=== PATIENT | female | born 1985 | race Caucasian/White ===

== ENCOUNTER → 2016-12-05 | Outpatient (CLI) | payer OTHER ==
[2016-11-16 09:30] VITALS: BP 120/61
[~2016-12-05] MED LIST: AMOX1TAB61 PO; ERYT1OIN6 EACHEYE; GABA-585 PO; HYDR-971 PO; LEVO75TA5 PO; PROAIR RESPICL90 MCG IH; TRAM50TA PO
--- NOTE | 2016-12-05 11:40 | RAD ---
EXAM: Bilateral lower extremity venous reflux exam. HISTORY: Swelling. TECHNIQUE: Grayscale and color Doppler sonographic imaging of the lower extremity veins with spectral waveform analysis was performed. COMPARISON: None. FINDINGS: The right greater saphenous vein measures 4.7 mm at its junction and does not reflux. The left greater saphenous vein measures 5.9 mm at its junction and is no reflux. There is no evidence of venous reflux involving the lesser saphenous veins. IMPRESSION: No evidence of greater or lesser saphenous vein reflux.
== END | disposition home or self-care (01) ==
LOC: US 10:33
PROVIDERS: ATTEND Physician Assistant Medical
DX: I83.93 Asymptomatic varicose veins of bilateral lower extremities (principal); R60.9 Edema, unspecified
CPT/HCPCS: 93970

== ENCOUNTER 2016-12-12 15:26 | Emergency (ER) | payer OTHER ==
[~2016-12-12] VITALS: Ht 172.7 cm; Wt 102.5 kg
[2016-12-12 16:18] VITALS: BP 127/62
[2016-12-12] MEDS ORDERED: AZIT250T PO (16:31)
[2016-12-12] MEDS ORDERED: PROAIR RESPICL90 MCG IH (16:31)
--- NOTE | 2016-12-12 16:31 | PHYS DOC ---
Past Medical History Past Medical History: Anxiety, Asthma, Hypothyroid Past Surgical History: , Other Additional Past Surgical Histo: LEFT ANKLE, right hand surgery Alcohol Use: None Drug Use: None Adult General Chief Complaint Chief Complaint: COUGH HPI HPI Patient is a 31 year old female with history of anxiety and asthma and hypothyroidism currently 13 weeks who presents today with a productive cough, nasal congestion, and shortness of breath for one week. Patient denies any fever. She states she was seen in the ED on October 2016 with same complaints and was given antibiotics which cleared her symptoms then symptoms re - started again a week ago. She states she had an appointment with her SYNOPTIC METEOROLOGIST today at 4 PM but missed the appointment to come to the ED. Patient is very concerned she could've walking pneumonia she even presented with a sputum in a zip lock bag that she would like us to test. Informed her we do not need the sputum today. we can treat her. Review of Systems Review of Systems Constitutional: see HPI Eyes: Denies change in visual acuity, redness, or eye pain [] HENT: nasal congestion Respiratory: cough and shortness of breath [] Cardiovascular: No additional information not addressed in HPI [] GI: Denies abdominal pain, nausea, vomiting, bloody stools or diarrhea [] : Denies dysuria or hematuria [] Musculoskeletal: Denies back pain or joint pain [] Integument: Denies rash or skin lesions [] Neurologic: Denies headache, focal weakness or sensory changes [] Endocrine: Denies polyuria or polydipsia [] Allergies Allergies Allergies Coded Allergies Type Severity Reaction Last Updated Verified Latex, Natural Rubber Allergy Intermediate Hives 12/20/15 Yes I S O L A T I O N *CONTACT* Allergy Unknown 12/20/15 Yes Physical Exam Physical Exam Constitutional: Well developed, well nourished, no acute distress, non-toxic appearance. [] HENT: Normocephalic, atraumatic, bilateral external ears normal, oropharynx moist, no oral exudates, nose normal. [] Eyes: PERRLA, EOMI, conjunctiva normal, no discharge. [] Neck: Normal range of motion, no tenderness, supple, no stridor. [] Cardiovascular:Heart rate regular rhythm, no murmur [] Lungs & Thorax: Bilateral breath sounds clear to auscultation, Abdomen: Bowel sounds normal, soft, no tenderness, no masses, no pulsatile masses. [] Skin: Warm, dry, no erythema, no rash. [] Back: No tenderness, no CVA tenderness. [] Extremities: No tenderness, no cyanosis, no clubbing, ROM intact, no edema. [] Neurologic: Alert and oriented X 3, normal motor function, normal sensory function, no focal deficits noted. [] Psychologic: Affect normal, judgement normal, mood normal. [] EKG EKG [] Radiology/Procedures Radiology/Procedures [] Course & Med Decision Making Course & Med Decision Making Pertinent Labs and Imaging studies reviewed. (See chart for details) This is a 13 week woman who presents today with a productive cough with nasal congestion for week. Discharge her with azithromycin. Discharged with albuterol inhaler. Instructed to contact her OB and follow-up as soon as possible. Humidifier also recommended for the room as well as rubbing Vicks to her chest and nose. Reminded patient some of the symptoms could be related especially nasal congestion. Recommended hot tea with amilcar as well. Provided return precautions and discharged in stable condition. Dragon Disclaimer Dragon Disclaimer This electronic medical record was generated, in whole or in part, using a voice recognition dictation system. Departure Departure Impression: Primary Impression: Bronchitis, acute Additional Impression: Upper respiratory infection Disposition: 01 HOME, SELF-CARE Condition: STABLE Referrals: JONNY LEVI MD (PCP) follow up with your own OBGYN and PCP in the next seven days. Patient Instructions: Acute Bronchitis, Upper Respiratory Infection, Adult, [id number] Additional Instructions: You are and were seen for bronchitis. Please complete your antibiotics. This is a five day treatment. You can get a humidifier and place in your room or house. Drink warm tea with amilcar it helps with colds. Follow up with your doctor in the next 7 days. some of the symptoms could be related especially the nasal congestion. Scripts Albuterol Sulfate (Proair Respiclick)90 Mcg Aer.pow.ba1 Puff IH PRN Q6HRS PRN SHORTNESS OF BREATH #1 INHALER Prov:MUTUNGA,MARI WEB ANALYST 12/12/16 Azithromycin (Zithromax)250 Mg Tablet1 Pkg PO UD #1 PKG Prov:MUTUNGA,MARI WEB ANALYST 12/12/16 Problem Qualifiers Primary Impression: Bronchitis, acute Bronchitis organism: unspecified organism Qualified Code: J20.9 - Acute bronchitis, unspecified Additional Impression: Upper respiratory infection URI type: unspecified URI Qualified Code: J06.9 - Acute upper respiratory infection, unspecified MARI EDUARDO WEB ANALYST Dec 12, 2016 16:31
== END 2016-12-12 16:40 | disposition home or self-care (01) ==
LOC: ER 15:26
DX: O99.511 Diseases of the respiratory system complicating pregnancy, first trimester (principal); J20.9 Acute bronchitis, unspecified; J06.9 Acute upper respiratory infection, unspecified; J45.909 Unspecified asthma, uncomplicated; E03.9 Hypothyroidism, unspecified; F41.9 Anxiety disorder, unspecified; Z3A.13 13 weeks gestation of pregnancy; Z91.041 Radiographic dye allergy status; Z91.040 Latex allergy status
CPT/HCPCS: 99283

== ENCOUNTER 2017-01-15 16:24 | Emergency (ER) | payer OTHER ==
[~2017-01-15] VITALS: Ht 172.7 cm; Wt 102.5 kg
[~2017-01-15 16:24] MED LIST changes: +AZIT250T PO
[2017-01-15 16:35] VITALS: BP 120/57
--- NOTE | 2017-01-15 17:12 | PHYS DOC ---
Past Medical History Past Medical History: Anxiety, Asthma, Hypothyroid Past Surgical History: , Other Additional Past Surgical Histo: LEFT ANKLE, right hand surgery Smoking: Less than 1pk/day Alcohol Use: None Drug Use: None Adult General Chief Complaint Chief Complaint: COUGH [facility] HPI Patient is a 31 year old female who presents with productive cough and shortness of breath starting yesterday. She also has nasal congestion and right ear pain. She denies fever or sore throat. Patient states that she has essentially been sick for the past 2-3 months. She's been seen here multiple times for her cough. She reports interval improvement after medication each time. She has a history of asthma and has been using her albuterol inhaler and nebulizer as well as her Advair Diskus. She is currently approximately 18 weeks . She has not been treated with steroids up to this point due to her . She did receive a flu shot this season. Her OB is Dr. Lama. Her PCP is Dr. Panfilo Valladares. Review of Systems Review of Systems Constitutional: Denies fever or chills. [] Eyes: Denies change in visual acuity, redness, or eye pain. [] HENT: Denies sore throat. Reports nasal congestion and right ear pain. Respiratory: Reports productive cough and shortness of breath. Cardiovascular: Denies chest pain, palpitations or edema. [] GI: Denies abdominal pain, nausea, vomiting, bloody stools or diarrhea. [] : Denies dysuria, hematuria or urinary frequency. [] Musculoskeletal: Denies back pain or joint pain. [] Integument: Denies rash or skin lesions. [] Neurologic: Denies headache, focal weakness or sensory changes. [] Endocrine: Denies polyuria or polydipsia. [] Psych: Denies anxiety or depression. [] All systems reviewed and negative unless otherwise stated in the HPI. Allergies Allergies Allergies Coded Allergies Type Severity Reaction Last Updated Verified Latex, Natural Rubber Allergy Intermediate Hives 12/20/15 Yes I S O L A T I O N *CONTACT* Allergy Unknown 12/20/15 Yes Physical Exam Physical Exam Constitutional: Well developed, well nourished, no acute distress, non-toxic appearance. [] HENT: Normocephalic, atraumatic, bilateral external ears normal, oropharynx moist, no oral exudates, nose normal. Bilateral TMs without erythema or bulging. There is no posterior pharyngeal erythema or tonsillar edema. Bilateral nasal turbinates are significantly swollen and erythematous with purulent drainage. Eyes: PERRLA, EOMI, conjunctiva normal, no discharge. [] Neck: Normal range of motion, no tenderness, supple, no stridor. [] Cardiovascular: Heart rate regular rhythm, no murmur [] Lungs & Thorax: Bilateral breath sounds clear to auscultation without wheezes, rales, or rhonchi. No respiratory distress. Skin: Warm, dry, no erythema, no rash. [] Neurologic: Alert and oriented X 3, normal motor function, normal sensory function, no focal deficits noted. [] Psychologic: Affect normal, judgement normal, mood normal. [] Current Patient Data Vital Signs Vital Signs Date Time Temp Pulse Resp B/P Pulse Ox O2 Delivery O2 Flow Rate FiO2 01/15/17 16:35 98.5 113 16 98 Room Air 98.5 Lab Values Laboratory Tests Test 01/15/17 16:50 Influenza Type A Antigen Positive (NEGATIVE) Influenza Type B Antigen Negative (NEGATIVE) EKG EKG [] Radiology/Procedures Radiology/Procedures [] Course & Med Decision Making Course & Med Decision Making Pertinent Labs and Imaging studies reviewed. (See chart for details) [] Dragon Disclaimer Dragon Disclaimer This electronic medical record was generated, in whole or in part, using a voice recognition dictation system. Departure Departure Impression: Primary Impression: Influenza A Disposition: HOME, SELF-CARE Condition: STABLE Referrals: PANFILO VALLADARES MD (PCP) Patient Instructions: Influenza, Adult, [id number] Additional Instructions: You tested positive for influenza A. Please complete the prescribed Tamiflu and steroids. Please take Tylenol for fever or body aches. Use according to package instructions. Please be sure you're drinking lots of water getting plenty of rest. Please stay home from work through Sunday. Please follow-up with your OB doctor within the next week. Return to the emergency department if you have any new or concerning symptoms. Scripts Oseltamivir Phosphate (Tamiflu)75 Mg Capsule1 Cap PO BID #10 CAP Prov:URI SHAFFER 01/15/17 Prednisone 20 Mg [id number] Mg PO DAILY 5 Days Prov:URI SHAFFER 01/15/17 URI SHAFFERb 20, 2017 17:12
[2017-01-15 17:36] LABS: OBC FLU VALID
[2017-01-15] MEDS ORDERED: OSEL75CA PO (17:49)
[2017-01-15] MEDS ORDERED: PRED20TA PO (17:49)
== END 2017-01-15 17:57 | disposition home or self-care (01) ==
LOC: ER 16:24
DX: O99.512 Diseases of the respiratory system complicating pregnancy, second trimester (principal); J09.X2 Influenza due to identified novel influenza A virus with other respiratory manifestations; H92.01 Otalgia, right ear; J45.909 Unspecified asthma, uncomplicated; O99.342 Other mental disorders complicating pregnancy, second trimester; F41.9 Anxiety disorder, unspecified; O99.282 Endocrine, nutritional and metabolic diseases complicating pregnancy, second trimester; E03.9 Hypothyroidism, unspecified; O99.332 Smoking (tobacco) complicating pregnancy, second trimester; Z91.041 Radiographic dye allergy status; Z91.040 Latex allergy status; Z3A.18 18 weeks gestation of pregnancy; Z79.899 Other long term (current) drug therapy
CPT/HCPCS: 87804; 99284

== ENCOUNTER 2017-01-28 21:43 | Emergency (ER) | payer OTHER ==
[~2017-01-28] VITALS: Ht 165.1 cm; Wt 102.5 kg
[~2017-01-28 21:43] MED LIST changes: +OSEL75CA PO; +PRED20TA PO
[2017-01-28 21:55] VITALS: BP 127/60
--- NOTE | 2017-01-28 22:04 | PHYS DOC ---
Past Medical History Past Medical History: Anxiety, Asthma, Hypothyroid Past Surgical History: , Other Additional Past Surgical Histo: LEFT ANKLE, right hand surgery Alcohol Use: None Drug Use: None Adult General Chief Complaint Chief Complaint: LACERATION/AVULSION [facility] HPI Patient is a 31 year old female presents emergency room with complaint of a laceration to the bottom of her right foot that occurred within the past 30 minutes prior to arrival. Patient states there was a broken light bulb on the floor in which she stepped on. She denies any additional injuries or concerns. Patient reports that she has had a tetanus shot within the past 2 years. Review of Systems Review of Systems Constitutional: Denies fever or chills [] Eyes: Denies change in visual acuity, redness, or eye pain [] HENT: Denies nasal congestion or sore throat [] Respiratory: Denies cough or shortness of breath [] Cardiovascular: No additional information not addressed in HPI [] GI: Denies abdominal pain, nausea, vomiting, bloody stools or diarrhea [] : Denies dysuria or hematuria [] Musculoskeletal: Denies back pain or joint pain [] Integument: Denies rash or skin lesions [] Neurologic: Denies headache, focal weakness or sensory changes [] Endocrine: Denies polyuria or polydipsia [] Allergies Allergies Allergies Coded Allergies Type Severity Reaction Last Updated Verified Latex, Natural Rubber Allergy Intermediate Hives 12/20/15 Yes I S O L A T I O N *CONTACT* Allergy Unknown 12/20/15 Yes Physical Exam Physical Exam Constitutional: Well developed, well nourished, no acute distress, non-toxic appearance. [] HENT: Normocephalic, atraumatic, bilateral external ears normal, oropharynx moist, no oral exudates, nose normal. [] Eyes: PERRLA, EOMI, conjunctiva normal, no discharge. [] Neck: Normal range of motion, no tenderness, supple, no stridor. [] Cardiovascular:Heart rate regular rhythm, no murmur [] Lungs & Thorax: Bilateral breath sounds clear to auscultation [] Abdomen: Bowel sounds normal, soft, no tenderness, no masses, no pulsatile masses. [] Skin: Warm, dry, no erythema, no rash. [] Back: No tenderness, no CVA tenderness. [] Extremities: Right foot with a 1 cm laceration/puncture to the plantar surface at the level of the third MTPJ. There is no active bleeding. There is no palpable foreign body retained. There is no bony tenderness. Neurologic: Alert and oriented X 3, normal motor function, normal sensory function, no focal deficits noted. [] Psychologic: Affect normal, judgement normal, mood normal. [] Current Patient Data Vital Signs Vital Signs Date Time Temp Pulse Resp B/P Pulse Ox O2 Delivery O2 Flow Rate FiO2 01/28/17 21:55 97.8 66 18 98 Room Air 97.8 EKG EKG [] Radiology/Procedures Radiology/Procedures 2 views of patient's right foot was performed with adequate technique. There is evidence of a small retained foreign body in the subcutaneous tissue consistent with exam. Course & Med Decision Making Course & Med Decision Making Discussed with patient the retained foreign body. She verbalizes understanding that this. At this time, we have elected to leave the foreign body along and wanted to clear itself if it is going to cause any problems. Dragon Disclaimer Dragon Disclaimer This electronic medical record was generated, in whole or in part, using a voice recognition dictation system. Departure Departure Impression: Primary Impression: Retained foreign body Disposition: HOME, SELF-CARE Condition: GOOD Referrals: JONNY LEVI MD (PCP) Patient Instructions: Foreign Body-Brief Additional Instructions: 1. As discussed, the x-rays that show a small retained foreign body in the area of the cut. At this time, it is believed that we may cause more soft tissue damage in attempting to remove the foreign body. 2. Take the medication as prescribed. 3. You can call the wound care clinic to schedule follow-up appointment for wound evaluation. Please call [phone] to schedule an appointment. Scripts Hydrocodone/Apap 5-325 ([place] 5-325 Tablet)1 Each Tablet1 Tab PO PRN Q6HRS PRN PAIN #10 TAB Ref 0 Prov:STEPHANIE MEEKS 01/28/17 Cephalexin 500 Mg Capsule1 Cap PO TID #30 CAP Prov:STEPHANIE MEEKS 01/28/17 STEPHANIE MEEKS Jan 28, 2017 22:04
[2017-01-28] MEDS ORDERED: CEPH500C PO (22:29)
[2017-01-28] MEDS ORDERED: HYDR-971 PO (22:29)
--- NOTE | 2017-01-29 07:35 | RAD ---
EXAM: Right foot 2 views. HISTORY: Stepped on glass, laceration, foreign body. COMPARISON: None. FINDINGS: A splinterlike radiopaque foreign body projects between the second and third metatarsal diaphyses, likely within the immediately subcutaneous tissues of the plantar aspect of the foot. Correlate for this is the site of penetrating injury. It measures 3 x 1 mm. No fractures are identified. Joint spaces and alignment are maintained. IMPRESSION: 1. 3 x 1 mm radiopaque foreign body along the plantar aspect of the forefoot.
== END 2017-01-28 22:34 | disposition home or self-care (01) ==
LOC: ER 21:43
DX: S91.321A Laceration with foreign body, right foot, initial encounter (principal); F41.9 Anxiety disorder, unspecified; E03.9 Hypothyroidism, unspecified; J45.909 Unspecified asthma, uncomplicated; Z91.041 Radiographic dye allergy status; Z91.040 Latex allergy status; W22.8XXA Striking against or struck by other objects, initial encounter; Y93.89 Activity, other specified; Y92.89 Other specified places as the place of occurrence of the external cause; Y99.8 Other external cause status
CPT/HCPCS: 73620; 99283; 99284

== ENCOUNTER → 2017-03-30 | Outpatient (CLI) | payer OTHER ==
[2017-02-02 09:04] VITALS: BP 115/72
[~2017-03-30] MED LIST changes: +CEPH500C PO
--- NOTE | 2017-03-30 09:14 | KCIC ---
PROCEDURE Left breast sonogram. HISTORY 32-year-old female presents with a left breast lump. TECHNIQUE Sonographic imaging of the left breast targeted to the site of palpable concern and the axilla was performed. COMPARISON None. FINDINGS There is no suspicious finding within the left breast at the site of palpable concern at the 11 o'clock position 12 cm from the nipple. There are normal appearing axillary lymph nodes. IMPRESSION 1. No suspicious sonographic finding within the site of palpable concern within the 11 o'clock position of the left breast. A negative imaging report should not preclude the decision to biopsy a palpable abnormality if there is clinical concern. 2. The patient is 36 weeks . Diagnostic mammography can be considered following delivery and several months following cessation of if there is continuing clinical concern. 3. BI-RADS Category 2: Benign findings. Electronically signed by: Shelley Ross (March 30, 2017 09:12:53)
== END | disposition home or self-care (01) ==
LOC: KCIC US 08:45
PROVIDERS: ATTEND Obstetrics & Gynecology
DX: O92.29 Other disorders of breast associated with pregnancy and the puerperium (principal); Z3A.36 36 weeks gestation of pregnancy
CPT/HCPCS: 76641

== ENCOUNTER 2017-04-25 19:25 | Inpatient (IN) | payer OTHER ==
[~2017-04-25] VITALS: Ht 167.6 cm; Wt 99.8 kg
[2017-04-25] MEDS ORDERED: IV RINGERS,LACTATED 1000ML 1,000 ML IV SCH (19:55)
[2017-04-25] MEDS ORDERED: LIDOCAINE 1% PF 30 ML VIAL. INJ PRN (20:00)
[2017-04-25] MEDS ORDERED: ACETAMINOPHEN 325 MG TABLET. PO PRN ×2 (20:00→21:00)
[2017-04-25] MEDS ORDERED: 0.9 % SODIUM CHLORIDE 10 ML DISP.SYRIN. IV PRN ×2 (20:00→21:00)
[2017-04-25] MEDS ORDERED: fentaNYL PF VIAL 100 MCG/2 ML VIAL IV PRN (20:00)
[2017-04-25] MEDS ORDERED: ONDANSETRON PF 4 MG/2 ML VIAL. IV PRN (20:00)
[2017-04-25] MEDS ORDERED: MAG HYDROX/ALUMINUM HYD/SIMETH 30 ML ORAL.SUSP PO PRN ×2 (20:00→21:00)
[2017-04-25] MEDS ORDERED: CITRIC ACID/SODIUM CITRATE 30 ML SOLUTION. PO PRN (20:00)
[2017-04-25] MEDS ORDERED: BUTORPHANOL 2 MG/ML VIAL. IV PRN (20:00)
[2017-04-25] MEDS ORDERED: OXYTOCIN 30 UNIT/500 ML PREMIX 500 ML IV PRN ×2 (20:00→21:00)
[2017-04-25] MEDS ORDERED: TERBUTALINE 1 MG/ML VIAL. SQ PRN (20:00)
[2017-04-25 20:05] LABS: HEMATOCRIT 31.5 % (36.0-47.0); RED BLOOD COUNT 3.8 x10^6/uL (3.50-5.40); WHITE BLOOD COUNT 14.4 x10^3/uL (4.0-11.0)
[2017-04-25 20:23] LABS: BILIRUBIN,URINE NEGATIVE (NEG); GLUCOSE,URINE NEGATIVE (NEG); NITRITE,URINE NEGATIVE (NEG); PROTEIN,URINE NEGATIVE (NEG-TRACE); UROBILINOGEN,URINE 0.2 mg/dL (0.2 mg/dL)
[2017-04-25 20:28] LABS: BACTERIA,URINE FEW /HPF (0-FEW); RBC,URINE 20-40 /HPF (0-2); SQUAMOUS EPITHELIAL CELL,UR MANY /LPF; WBC,URINE 20-40 /HPF (0-4)
[2017-04-25 20:30] LABS: BARBITURATES NEG (NEG); BENZODIAZEPINES NEG (NEG); CANNABINOIDS NEG (NEG); COCAINE NEG (NEG); METHADONE NEG (NEG); OPIATES NEG (NEG); PHENCYCLIDINE NEG (NEG)
[2017-04-25] MEDS ORDERED: PHENYLEPH/MINERAL OIL/PETROLAT RECTAL OINTMENT 28GM TUBE. RC PRN (21:00)
[2017-04-25] MEDS ORDERED: HYDROCORTISONE 1% TOPICAL OINTMENT 30GM TUBE. TP PRN (21:00)
[2017-04-25] MEDS ORDERED: BENZOCAINE 20% TOPICAL AEROSOL SPRAY 57GM CAN. TP PRN (21:00)
[2017-04-25] MEDS ORDERED: SIMETHICONE 80 MG TAB.CHEW PO PRN (21:00)
[2017-04-25] MEDS ORDERED: MMR per PROTOCOL. MC PRN (21:00)
[2017-04-25] MEDS ORDERED: MAGNESIUM HYDROXIDE 2,400 MG/30 ML ORAL.SUSP. PO PRN (21:00)
[2017-04-25] MEDS ORDERED: diphenhydrAMINE HCL 25 MG CAPSULE PO PRN (21:00)
[2017-04-25] MEDS ORDERED: ZOLPIDEM 5 MG TABLET. PO PRN (21:00)
[2017-04-25] MEDS ORDERED: OXYTOCIN 10 UNIT/ML VIAL. ONE (21:16)
[2017-04-25] MEDS ORDERED: ePHEDrine PF IN SALINE 50 MG/5 ML DISP.SYRIN IV ONE (21:16)
[2017-04-25] MEDS ORDERED: MORPHINE PF 5 MG/10 ML VIAL. ONE (21:16)
[2017-04-25] MEDS ORDERED: METOCLOPRAMIDE HCL 10 MG/2 ML VIAL. ONE (22:23)
--- NOTE | 2017-04-25 22:44 | PDOC ---
SUBJECTIVE Subjective 32 yrs old female Previous C section admitted in active Labor OBJECTIVE Objective Vital signs stable Hb 10 Vital Signs Vital Signs Date Time Temp Pulse Resp B/P (MAP) Pulse Ox O2 Delivery O2 Flow Rate FiO2 04/25/17 20:17 20 Room Air PHYSICAL EXAM Physical Exam Cervix dilated to 4cm Has contractions She is 42 weeks oedema feet Drug abuse ASSESSMENT/PLAN Assessment/Plan Repeat done Alive Male baby 7lbs 9 oz dlivered with apgars 7and 9 EBL 300 cc Problems: COMMENT Lab Laboratory Tests Test 04/25/17 19:45 04/25/17 20:15 White Blood Count 14.4 x10^3/uL (4.0-11.0) Red Blood Count 3.80 x10^6/uL (3.50-5.40) Hemoglobin 10.0 g/dL (12.0-15.5) Hematocrit 31.5 % (36.0-47.0) Mean Corpuscular Volume 83 fL (79-100) Mean Corpuscular Hemoglobin 26 pg (25-35) Mean Corpuscular Hemoglobin Concent 32 g/dL (31-37) Red Cell Distribution Width 15.0 % (11.5-14.5) Platelet Count 261 x10^3/uL (140-400) Urine Collection Type Unknown Urine Color Yellow Urine Clarity Cloudy Urine pH 6.0 Urine Specific [place] 1.025 Urine Protein Negative mg/dL (NEG-TRACE) Urine Glucose (UA) Negative mg/dL (NEG) Urine Ketones (Stick) Negative mg/dL (NEG) Urine Blood Large (NEG) Urine Nitrite Negative (NEG) Urine Bilirubin Negative (NEG) Urine Urobilinogen Dipstick 0.2 mg/dL (0.2 mg/dL) Urine Leukocyte Esterase Large (NEG) Urine RBC 20-40 /HPF (0-2) Urine WBC 20-40 /HPF (0-4) Urine Squamous Epithelial Cells Many /LPF Urine Amorphous Sediment Present /HPF Urine Bacteria Few /HPF (0-FEW) Urine Mucus Mod /LPF Urine Opiates Screen Neg (NEG) Urine Methadone Screen Neg (NEG) Urine Barbiturates Neg (NEG) Urine Phencyclidine Screen Neg (NEG) Urine Amphetamine/Methamphetamine Pos (NEG) Urine Benzodiazepines Screen Neg (NEG) Urine Cocaine Screen Neg (NEG) Urine Cannabinoids Screen Neg (NEG) Urine Ethyl Alcohol Neg (NEG) SATHYANARAYANA,SARASWATHI MD April 25, 2017 22:44
--- NOTE | 2017-04-25 22:50 | HP ---
ADMIT DATE: 04/25/2017 HISTORY OF PRESENT ILLNESS: This patient is a 32-year-old white female who is a 6, para 5, EDC 04/23/2017 has had a care was seen by Dr. Florence in the clinic and patient comes into the hospital at this time with a history of having contractions and she does give a history of previous and be back delivery, but she has gained about 20 pounds with this and patient in active labor, hence admitted to the hospital. PHYSICAL EXAMINATION: VITAL SIGNS: Being stable. HEAD, EYES, NOSE, THROAT: Exam within normal limits. LUNGS: Clear. CARDIOVASCULAR: Heart sounds regular sinus rhythm. ABDOMEN: Term size uterus. heart tones are 140 per minute and vertex presenting. PELVIC: Shows cervix about 4 cm dilated, membranes intact. The patient in labor. EXTREMITIES: Edema of feet noted. ALLERGIES: SHE IS ALLERGIC TO LATEX. IMPRESSION: 6, post-term . The patient in active labor, previous section. PLAN: Repeat . RICH MOORE MD DR: MARELY/jaylan JOB#: [id number] / [id number]
[2017-04-26] VITALS (8 sets, daily range): BP systolic 92–104; BP diastolic 40–62
[2017-04-26] MEDS ORDERED: IBUPROFEN 600 MG TABLET. PO SCH
--- NOTE | 2017-04-26 00:04 | OP ---
DATE OF SURGERY: PREOPERATIVE DIAGNOSES: 6, para 5, previous section; the patient in active labor. POSTOPERATIVE DIAGNOSES: 6, para 5, previous section; the patient in active labor with pelvic adhesions. OPERATION PERFORMED: Repeat with lysis of adhesions. PROCEDURE: The patient was taken to the operating room. Under a spinal block, the patient was placed in the dorsal supine position. Rich catheter was introduced in the bladder for continuous bladder drainage. The lower abdomen was prepped and draped in the usual manner. A Pfannenstiel incision was made over the area of the previous scar and the abdomen was opened in layers and the bladder flap peritoneum was dissected. Bladder was pushed way down the lower segment of the uterus. Incision was made on the uterus and the incision was extended on either side using index fingers. Clear amniotic fluid was seen. A live male weighing 7 pounds 9 ounces, delivered with the scores of 7 and 9. Cord was clamped and cut. The placenta was removed and sent for pathological examination. The uterus was sutured in two layers using #1 chromic catgut sutures without any problem and reperitonealization was done with continuous 0 chromic catgut sutures. She did receive Pitocin after delivery of the placenta. All the blood clots in the pelvic cavity were removed. Uterus placed in position in the pelvic cavity and the abdomen closed in layers using continuous 0 chromic catgut sutures for the peritoneum, the muscle, and the fascia. Then, 3-0 plain continuous sutures applied for subcutaneous tissue, 3-0 Vicryl subcutaneous sutures were placed, and a pressure dressing was given. The patient was sent to the recovery room in good condition. No complications encountered at time of the delivery. Estimated blood loss was about 300 mL. Baby is referred to scuba instructor for further care and treatment. Mother tolerated the delivery well. No complications at this time. RICH MOORE MD DR: MARELY/jaylan JOB#: [id number] / [id number]
[2017-04-26] MEDS ORDERED: FERROUS SULFATE 325 MG TABLET. PO SCH (08:00)
[2017-04-26] MEDS: DOCUSATE SODIUM 100 MG CAPSULE. PO PRN ×2 (10:30→22:15)
[2017-04-26] MEDS: IBUPROFEN 800 MG TABLET. PO PRN ×2 (10:30→22:15)
[2017-04-26] MEDS: oxyCODONE/APAP 5/325 1 TAB TABLET PO PRN ×2 (12:33→22:15)
--- NOTE | 2017-04-26 14:18 | PDOC ---
SUBJECTIVE Subjective Patient doing fine No complaints OBJECTIVE Objective Vital signs stable Vital Signs Vital Signs Date Time Temp Pulse Resp B/P (MAP) Pulse Ox O2 Delivery O2 Flow Rate FiO2 04/26/17 11:30 99.0 105 16 101/48 (65) 95 Room Air 99.0 04/26/17 06:47 99.3 117 18 92/49 (63) 94 Room Air 99.3 04/26/17 03:30 99.7 113 18 96/40 (58) 95 Room Air 99.7 04/26/17 02:40 99.6 109 18 102/56 (71) 97 Room Air 99.6 04/26/17 02:15 99.4 110 18 100/62 (75) 97 Room Air 99.4 04/26/17 01:40 99.2 110 18 104/60 (75) 97 Room Air 99.2 04/25/17 20:17 20 Room Air I & O Intake and Output 04/26/17 07:00 Intake Total 480 ml Output Total 1300 ml Balance -820 ml Intake Oral 480 ml Output Urine Total 1300 ml PHYSICAL EXAM Physical Exam No fever Abdomen soft Incision healing well ASSESSMENT/PLAN Assessment/Plan Post op day one Lochia normal No heavy bleeding Baby doing ok Problems: COMMENT Lab Laboratory Tests Test 04/25/17 19:45 04/25/17 20:15 04/26/17 03:37 White Blood Count 14.4 x10^3/uL (4.0-11.0) Red Blood Count 3.80 x10^6/uL (3.50-5.40) Hemoglobin 10.0 g/dL (12.0-15.5) Hematocrit 31.5 % (36.0-47.0) 30.1 % (36.0-47.0) Mean Corpuscular Volume 83 fL (79-100) Mean Corpuscular Hemoglobin 26 pg (25-35) Mean Corpuscular Hemoglobin Concent 32 g/dL (31-37) Red Cell Distribution Width 15.0 % (11.5-14.5) Platelet Count 261 x10^3/uL (140-400) Urine Collection Type Unknown Urine Color Yellow Urine Clarity Cloudy Urine pH 6.0 Urine Specific [place] 1.025 Urine Protein Negative mg/dL (NEG-TRACE) Urine Glucose (UA) Negative mg/dL (NEG) Urine Ketones (Stick) Negative mg/dL (NEG) Urine Blood Large (NEG) Urine Nitrite Negative (NEG) Urine Bilirubin Negative (NEG) Urine Urobilinogen Dipstick 0.2 mg/dL (0.2 mg/dL) Urine Leukocyte Esterase Large (NEG) Urine RBC 20-40 /HPF (0-2) Urine WBC 20-40 /HPF (0-4) Urine Squamous Epithelial Cells Many /LPF Urine Amorphous Sediment Present /HPF Urine Bacteria Few /HPF (0-FEW) Urine Mucus Mod /LPF Urine Opiates Screen Neg (NEG) Urine Methadone Screen Neg (NEG) Urine Barbiturates Neg (NEG) Urine Phencyclidine Screen Neg (NEG) Urine Amphetamine/Methamphetamine Pos (NEG) Urine Benzodiazepines Screen Neg (NEG) Urine Cocaine Screen Neg (NEG) Urine Cannabinoids Screen Neg (NEG) Urine Ethyl Alcohol Neg (NEG) RICH MOORE MD Apr 26, 2017 14:18
--- NOTE | 2017-04-27 08:57 | PDOC ---
SUBJECTIVE Subjective Patient Having Breakfast No Complaints Wants to go home tomorrow OBJECTIVE Objective No fever No problems Vital Signs Vital Signs Date Time Temp Pulse Resp B/P (MAP) Pulse Ox O2 Delivery O2 Flow Rate FiO2 04/26/17 23:47 18 04/26/17 23:15 18 Room Air 04/26/17 22:15 97.9 90 18 100/62 (75) 97 Room Air 97.9 04/26/17 22:15 18 Room Air 04/26/17 15:20 97.8 88 18 93/54 (67) 98 Room Air 97.8 04/26/17 11:30 99.0 105 16 101/48 (65) 95 Room Air 99.0 I & O Intake and Output 04/27/17 07:00 Intake Total 500 ml Output Total 900 ml Balance -400 ml Intake Oral 500 ml Output Urine Total 900 ml PHYSICAL EXAM Physical Exam Abdomen sft Incision healing well ASSESSMENT/PLAN Assessment/Plan Plan dismissal tomorrow AM Problems: RICH MOORE MD Apr 27, 2017 08:57
[2017-04-27 09:31] VITALS: BP 133/65
[2017-04-27] MEDS: DOCUSATE SODIUM 100 MG CAPSULE. PO PRN (10:01)
[2017-04-27] MEDS: oxyCODONE/APAP 5/325 1 TAB TABLET PO PRN ×3 (10:01→18:34)
[2017-04-27] MEDS: IBUPROFEN 800 MG TABLET. PO PRN ×2 (10:01→18:33)
[2017-04-27 10:24] LABS: RPR REFLEX Non Reactive (Non Reactive)
[2017-04-27] MEDS ORDERED: ceFAZolin 2GM PREMIX 2 GM/50 ML BAG IV ONE (12:00)
[2017-04-27 13:31] VITALS: BP 104/64
--- NOTE | 2017-04-30 13:43 | PATHOLOGY ---
PATHOLOGY REPORT * * * * * * * * FINAL DIAGNOSIS: 693 gram full term placenta with attached membranes and umbilical cord: - Acute chorioamnionitis. - Acute funisitis. - Acute vasculitis of chorionic plate. - Short umbilical cord (32 cm) with marginal insertion. (JPM:; d/t: 04/30/17) REPORT ELECTRONICALLY SIGNED BY: Cristhian Garner M.D. DATE/TIME: 04/30/2017 13:42 * * * * * * * * GROSS PATHOLOGY: The specimen is received in formalin labeled "Bhavanaplacelata" is a 17.2 x 15.8 x 3.3 cm garcia placenta with a 32 cm long umbilical cord. The 3 vessel umbilical cord inserts paracentrally with 3 twists per 5-6 cm. The membranes are bluish sahni with marginal insertion. The point of rupture is unable to be determined. The surface is intact. The maternal surface is also intact. After removal of the membranes and umbilical cord, the placenta weighs 693 g. Sectioning reveals a red beefy unremarkable cut surface. Section code: A1-membranes and umbilical cord, [id number] section adjacent to umbilical cord insertion site, A3 through [id number] sales representative trainee sections of placenta full-thickness. (AKA; 04/27/2017) INITIAL CPT CODE(S): A; 43885 Professional services performed [place] [facility] [place] [address] Technical services performed by [facility] at [address] [place] [address] [address] [address]. SPECIMEN(S) RECEIVED: A.Placenta CLINICAL HISTORY: IUP, EDC 04/23/17, repeat , , 7lb 5oz male @ 2201 on 04/25/17, apgars 7-9, ? unknown care, + for meth PATIENT: ADRIANNA BURR /AGE: 4 1985 (Age: 32) PATIENT #: [id number] ALT CASE #: SPECIMEN COLLECTION DATE: 04/25/2017 SPECIMEN RECEIVED DATE: 04/26/2017 [facility] - [address] [place] [address] - PHONE: [phone] * * * END OF REPORT * * *
== END 2017-04-27 18:40 | disposition home or self-care (01) | DRG 766 ==
LOC: 3 SO LND 19:25 → OBSVTOIN 19:25 → 3 SO LND 22:10 → 3 NORTH 04-26 01:30
PROVIDERS: ADMIT Obstetrics & Gynecology; ATTEND Obstetrics & Gynecology
PROC: 10D00Z1 Extraction of Products of Conception, Low, Open Approach (ICD-10-PCS; principal; 2017-04-25)
DX: O34.219 Maternal care for unspecified type scar from previous cesarean delivery (principal); O48.0 Post-term pregnancy; Z91.040 Latex allergy status; Z37.0 Single live birth; Z3A.42 42 weeks gestation of pregnancy; N73.6 Female pelvic peritoneal adhesions (postinfective)
CPT/HCPCS: 36415; 81001; 85014; 85027; 86593; 86762; 86850; 86900; 86901; 87086; 87340; 87341; 88307; G0481; J0690; J2270; J2590; J2765

== ENCOUNTER 2017-04-27 18:42 | Emergency (ER) | payer OTHER ==
[~2017-04-27] VITALS: Ht 172.7 cm; Wt 99.8 kg
[2017-04-27 18:57] VITALS: BP 140/64
--- NOTE | 2017-04-27 19:12 | PHYS DOC ---
Past Medical History Past Medical History: Anxiety, Asthma, Hypothyroid Past Surgical History: , Other Additional Past Surgical Histo: LEFT ANKLE, right hand surgery Alcohol Use: None Drug Use: None Adult General Chief Complaint Chief Complaint: OTHER COMPLAINTS [facility] HPI Patient is a 32 year old female who presents with complaints of moderate incisional pain [id number]. Patient just delivered a baby a couple days ago and was discharged from the OB floor at 1800, and turned around and checked into the ED right away. patient states they called in a prescription for Ultracet for her and she does not want the Ultram because it does not do anything for her. She is requesting something stronger for her pain at home. We did call the OB floor, they state patient was supposed to be discharged tomorrow but she decided to leave today. Review of Systems Review of Systems Constitutional: Denies fever or chills [] Eyes: Denies change in visual acuity, redness, or eye pain [] HENT: Denies nasal congestion or sore throat [] Respiratory: Denies cough or shortness of breath [] Cardiovascular: No additional information not addressed in HPI [] GI: Incisional abdominal pain : Denies dysuria or hematuria [] Musculoskeletal: Denies back pain or joint pain [] Integument: Denies rash or skin lesions [] Neurologic: Denies headache, focal weakness or sensory changes [] Endocrine: Denies polyuria or polydipsia [] Current Medications Current Medications Current Medications Medications (Trade) Dose Ordered Sig/Michael Start Time Stop Time Status Last Admin Dose Admin Acetaminophen/ Hydrocodone Bitart (Lortab 5/325) 2 tab 1X ONCE 04/27/17 19:15 04/27/17 19:16 Allergies Allergies Allergies Coded Allergies Type Severity Reaction Last Updated Verified Latex, Natural Rubber Allergy Intermediate Hives 12/20/15 Yes I S O L A T I O N *CONTACT* Allergy Unknown 12/20/15 Yes Physical Exam Physical Exam Constitutional: Well developed, well nourished, no acute distress, non-toxic appearance. [] HENT: Normocephalic, atraumatic, bilateral external ears normal, oropharynx moist, no oral exudates, nose normal. [] Eyes: PERRLA, EOMI, conjunctiva normal, no discharge. [] Neck: Normal range of motion, no tenderness, supple, no stridor. [] Cardiovascular:Heart rate regular rhythm, no murmur [] Lungs & Thorax: Bilateral breath sounds clear to auscultation [] Abdomen: Bowel sounds normal, soft, no tenderness, no masses, no pulsatile masses. [] Skin: Warm, dry, no erythema, no rash. [] Back: No tenderness, no CVA tenderness. [] Extremities: No tenderness, no cyanosis, no clubbing, ROM intact, no edema. [] Neurologic: Alert and oriented X 3, normal motor function, normal sensory function, no focal deficits noted. [] Psychologic: Affect normal, judgement normal, mood normal. [] Current Patient Data Vital Signs Vital Signs Date Time Temp Pulse Resp B/P (MAP) Pulse Ox O2 Delivery O2 Flow Rate FiO2 04/27/17 18:57 97.4 87 18 98 Room Air 97.4 EKG EKG [] Radiology/Procedures Radiology/Procedures [] Course & Med Decision Making Course & Med Decision Making Pertinent Labs and Imaging studies reviewed. (See chart for details) This is a 32-year-old female patient who is presenting today from the OB floor. Patient had a baby a couple days ago via . She was discharged. OB floor states patient was supposed to be discharged tomorrow but she decided she wants to leave today. They state they called in a prescription for Ultram for her. 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 I offered patient pain relief in the ED and requested her to follow-up with her own SECURITY DIRECTOR Dr. Perdomo or Dr. Kunz. She was given 2 tablets of [place] and discharged. Dragon Disclaimer Dragon Disclaimer This electronic medical record was generated, in whole or in part, using a voice recognition dictation system. Departure Departure Impression: Primary Impression: Inadequate pain control Disposition: 01 HOME, SELF-CARE Condition: STABLE Referrals: JONNY LEVI MD (PCP) RICH MOORE MD Call her on Sunday and follow up as soon as you can. Patient Instructions: Delivery, Care After Additional Instructions: You were seen due to pain after having a . Please contact your own OB/ [facility] or Dr. Kunz and set up a follow-up appointment. Please get the prescription for Ultram that she called in for you and take it as needed for pain. MARI EDUARDO APRN Apr 27, 2017 19:12
[2017-04-27] MEDS ORDERED: HYDROcodone/APAP 5/325MG 1 TAB TABLET PO ONE (19:15)
== END 2017-04-27 19:15 | disposition home or self-care (01) ==
LOC: ER 18:42
DX: O90.89 Other complications of the puerperium, not elsewhere classified (principal); R10.9 Unspecified abdominal pain; F41.9 Anxiety disorder, unspecified; E03.9 Hypothyroidism, unspecified; J45.909 Unspecified asthma, uncomplicated; Z91.040 Latex allergy status; Z91.041 Radiographic dye allergy status
CPT/HCPCS: 99282

== ENCOUNTER 2017-05-03 05:30 | Emergency (ER) | payer OTHER ==
[~2017-05-03] VITALS: Ht 172.7 cm; Wt 99.8 kg
--- NOTE | 2017-05-03 05:39 | PHYS DOC ---
Past Medical History Past Medical History: Anxiety, Asthma, Hypothyroid Past Surgical History: , Other Additional Past Surgical Histo: LEFT ANKLE, right hand surgery Alcohol Use: None Drug Use: None Adult General Chief Complaint Chief Complaint: POST-OP PROBLEM HPI HPI Patient is a 32 year old female presenting to the emergency department for evaluation of lower abdominal pain bowel smelling discharge and not feeling well. She is and had a on April 25 and left several days later sooner than the OB wanted her to. Her OB was Dr. Florence at [facility] however she could not make it there and she had a here with Dr. Kunz. Below are her pathology results. She says she does not have much bleeding rather it is a thick yellowish discharge. FINAL DIAGNOSIS: 693 gram full term placenta with attached membranes and umbilical cord: - Acute chorioamnionitis. - Acute funisitis. - Acute vasculitis of chorionic plate. - Short umbilical cord (32 cm) with marginal insertion. (JPM:mgr; d/t: 04/30/17) Review of Systems Review of Systems Constitutional: Denies fever or chills [] Eyes: Denies change in visual acuity, redness, or eye pain [] HENT: Denies nasal congestion or sore throat [] Respiratory: Denies cough or shortness of breath [] Cardiovascular: No additional information not addressed in HPI [] GI: + abdominal pain. No nausea, vomiting, bloody stools or diarrhea [] : Denies dysuria or hematuria [] Musculoskeletal: Denies back pain or joint pain [] Integument: Denies rash or skin lesions [] Neurologic: Denies headache, focal weakness or sensory changes [] Current Medications Current Medications Current Medications Medications (Trade) Dose Ordered Sig/Michael Start Time Stop Time Status Last Admin Dose Admin Doxycycline Hyclate (Vibra-Tab) 100 mg 1X ONCE 05/03/17 06:30 05/03/17 06:31 DC 05/03/17 06:14 100 MG Fentanyl Citrate (Fentanyl 2ml Vial) 75 mcg 1X ONCE 05/03/17 06:00 05/03/17 06:01 DC 05/03/17 06:14 75 MCG Metronidazole 100 ml @ 100 mls/hr 1X ONCE 05/03/17 06:30 05/03/17 07:29 DC 05/03/17 06:13 100 MLS/HR Ondansetron HCl (Zofran) 8 mg 1X ONCE 05/03/17 06:00 05/03/17 06:01 DC 05/03/17 06:14 8 MG Sodium Chloride 1,000 ml @ 1,000 mls/hr 1X ONCE 05/03/17 06:00 05/03/17 06:59 DC 05/03/17 06:14 1,000 MLS/HR Allergies Allergies Allergies Coded Allergies Type Severity Reaction Last Updated Verified Latex, Natural Rubber Allergy Intermediate Hives 12/20/15 Yes I S O L A T I O N *CONTACT* Allergy Unknown 12/20/15 Yes Physical Exam Physical Exam Constitutional: Well developed, well nourished, no acute distress, non-toxic appearance. [] HENT: Normocephalic, atraumatic, bilateral external ears normal, oropharynx moist, no oral exudates, nose normal. [] Eyes: PERRLA, EOMI, conjunctiva normal, no discharge. [] Neck: Normal range of motion, no tenderness, supple, no stridor. [] Cardiovascular:Heart rate regular rhythm, no murmur [] Lungs & Thorax: Bilateral breath sounds clear to auscultation [] Abdomen: Bowel sounds normal, soft, no tenderness, no masses, no pulsatile masses. [] CANVAS SHRINKER exam revealed thick yellowish discharge mixed with some blood and she had tenderness on uterine exam. Skin: scar appears more red than usual especially on the right side with tenderness to palpation across entire scar Back: No tenderness, no CVA tenderness. [] Extremities: No tenderness, no cyanosis, no clubbing, ROM intact, no edema. [] Neurologic: Alert and oriented X 3, normal motor function, normal sensory function, no focal deficits noted. [] Current Patient Data Vital Signs Vital Signs Date Time Temp Pulse Resp B/P (MAP) Pulse Ox O2 Delivery O2 Flow Rate FiO2 05/03/17 05:40 98.9 90 20 133/68 (89) 98 Room Air 98.9 Lab Values Laboratory Tests Test 05/03/17 05:45 05/03/17 05:50 Urine Collection Type Void Urine Color Yellow Urine Clarity Clear Urine pH 6.5 Urine Specific [place] >=1.030 Urine Protein Negative mg/dL (NEG-TRACE) Urine Glucose (UA) Negative mg/dL (NEG) Urine Ketones (Stick) Negative mg/dL (NEG) Urine Blood Large (NEG) Urine Nitrite Negative (NEG) Urine Bilirubin Negative (NEG) Urine Urobilinogen Dipstick 0.2 mg/dL (0.2 mg/dL) Urine Leukocyte Esterase Small (NEG) Urine RBC 6-10 /HPF (0-2) Urine WBC 5-10 /HPF (0-4) Urine Squamous Epithelial Cells Mod /LPF Urine Bacteria Moderate /HPF (0-FEW) Urine Mucus Mod /LPF White Blood Count 10.1 x10^3/uL (4.0-11.0) Red Blood Count 4.30 x10^6/uL (3.50-5.40) Hemoglobin 11.5 g/dL (12.0-15.5) L Hematocrit 34.7 % (36.0-47.0) L Mean Corpuscular Volume 81 fL (79-100) Mean Corpuscular Hemoglobin 27 pg (25-35) Mean Corpuscular Hemoglobin Concent 33 g/dL (31-37) Red Cell Distribution Width 15.7 % (11.5-14.5) H Platelet Count 602 x10^3/uL (140-400) #H Neutrophils (%) (Auto) 62 % (31-73) Lymphocytes (%) (Auto) 27 % (24-48) Monocytes (%) (Auto) 8 % (0-9) Eosinophils (%) (Auto) 4 % (0-3) H Basophils (%) (Auto) 1 % (0-3) Neutrophils # (Auto) 6.2 x10^3uL (1.8-7.7) Lymphocytes # (Auto) 2.7 x10^3/uL (1.0-4.8) Monocytes # (Auto) 0.8 x10^3/uL (0.0-1.1) Eosinophils # (Auto) 0.4 x10^3/uL (0.0-0.7) Basophils # (Auto) 0.1 x10^3/uL (0.0-0.2) Segmented Neutrophils % 59 % (35-66) Lymphocytes % 32 % (24-48) Atypical Lymphocytes % (Manual) 2 % (0-0) H Monocytes % 5 % (0-10) Eosinophils % 2 % (0-5) Platelet Estimate Increased (ADEQUATE) Sodium Level 141 mmol/L (136-145) Potassium Level 3.7 mmol/L (3.5-5.1) Chloride Level 104 mmol/L (98-107) Carbon Dioxide Level 28 mmol/L (21-32) Anion Gap 9 (6-14) Blood Urea Nitrogen 21 mg/dL (7-20) H Creatinine 1.0 mg/dL (0.6-1.0) Estimated GFR (Cockcroft-Gault) 63.5 BUN/Creatinine Ratio 21 (6-20) H Glucose Level 110 mg/dL (70-99) H Calcium Level 9.4 mg/dL (8.5-10.1) Magnesium Level 2.1 mg/dL (1.8-2.4) Total Bilirubin 0.2 mg/dL (0.2-1.0) Aspartate Amino Transferase (AST) 42 U/L (15-37) H Alanine Aminotransferase (ALT) 59 U/L (14-59) Alkaline Phosphatase 184 U/L (46-116) H Total Protein 8.0 g/dL (6.4-8.2) Albumin 2.9 g/dL (3.4-5.0) L Albumin/Globulin Ratio 0.6 (1.0-1.7) L Laboratory Tests 05/03/17 05:50 Laboratory Tests 05/03/17 05:50 Microbiology 05/03/17 Gram Stain - Final, Complete EKG EKG [] Radiology/Procedures Radiology/Procedures [] Course & Med Decision Making Course & Med Decision Making Suspect endometritis. We'll start antibiotics and consult Dr. Kunz. May require inpatient admission but will need okay from OB if considering outpatient. I spoke with Dr. Kunz who said she could see pt in the clinic today. Information was given to patient to call for an appointment. Pt dc'd with rx for 15 norco tabs (not driving and explained using min needed and to not drive or lay with baby when taking), RX for doxy and flagyl Dragon Disclaimer Dragon Disclaimer This electronic medical record was generated, in whole or in part, using a voice recognition dictation system. Departure Departure Impression: Primary Impression: endometritis Referrals: JONNY LEVI MD (PCP) Scripts Metronidazole (FLAGYL) 500 Mg Tablet 1 TAB PO BID, #14 TAB Prov: VON IVORYTERowena,TREE J MD 05/03/17 Doxycycline Hyclate (DOXYCYCLINE HYCLATE) 100 Mg Tablet 1 TAB PO BID, #20 TAB Prov: TREE DEL VALLE MD 05/03/17 Hydrocodone/Apap 5-325 (NORCO 5-325 TABLET) 1 Each Tablet 1-2 EACH PO PRN Q6HRS Y for PAIN, #15 TAB as needed for pain Prov: TREE DEL VALLE MD 05/03/17 JONNY ABEBE DO May 03, 2017 05:39 TREE DEL VALLE MD May 03, 2017 07:49
[2017-05-03 05:40] VITALS: BP 133/68
[2017-05-03] MEDS ORDERED: fentaNYL PF VIAL 100 MCG/2 ML VIAL IV ONE (06:00)
[2017-05-03] MEDS ORDERED: ONDANSETRON PF 4 MG/2 ML VIAL. IV ONE (06:00)
[2017-05-03] MEDS ORDERED: IV NORMAL SALINE 1000ML BAG 1,000 ML IV ONE (06:00)
[2017-05-03 06:12] LABS: BASO # 0.1 x10^3/uL (0.0-0.2); BASO % 1 % (0-3); EOS % 4 % (0-3); HEMATOCRIT 34.7 % (36.0-47.0); HEMOGLOBIN 11.5 g/dL (12.0-15.5); LYMPH # 2.7 x10^3/uL (1.0-4.8); LYMPH % 27 % (24-48); MEAN CORPUSCULAR HEMOGLOBIN 27 pg (25-35); MEAN CORPUSCULAR HGB CONC 33 g/dL (31-37); MEAN CORPUSCULAR VOLUME 81 fL (79-100); MONO % 8 % (0-9); NEUT % 62 % (31-73); PLATELET COUNT 602 x10^3/uL (140-400); RED CELL DISTRIBUTION WIDTH 15.7 % (11.5-14.5); WHITE BLOOD COUNT 10.1 x10^3/uL (4.0-11.0)
[2017-05-03 06:13] LABS: CALCIUM 9.4 mg/dL (8.5-10.1); GFR 63.5; POTASSIUM 3.7 mmol/L (3.5-5.1)
[2017-05-03 06:19] LABS: ALBUMIN 2.9 g/dL (3.4-5.0); ALBUMIN/GLOBULIN RATIO 0.6 (1.0-1.7); MAGNESIUM 2.1 mg/dL (1.8-2.4); TOTAL BILIRUBIN 0.2 mg/dL (0.2-1.0)
[2017-05-03] MEDS ORDERED: DOXYCYCLINE HYCLATE 100 MG TABLET PO ONE (06:30)
[2017-05-03 06:49] LABS: BILIRUBIN,URINE NEGATIVE (NEG); GLUCOSE,URINE NEGATIVE (NEG); NITRITE,URINE NEGATIVE (NEG); PH,URINE 6.5; PROTEIN,URINE NEGATIVE (NEG-TRACE); UROBILINOGEN,URINE 0.2 mg/dL (0.2 mg/dL)
[2017-05-03 07:03] LABS: BACTERIA,URINE MODERATE /HPF (0-FEW); SQUAMOUS EPITHELIAL CELL,UR MOD /LPF
[2017-05-03 07:10] LABS: % EOS 2 % (0-5); PLT ESTIMATE INCREASED (ADEQUATE)
[2017-05-03] MEDS ORDERED: HYDR-971 PO (07:37)
[2017-05-03] MEDS ORDERED: DOXY100T PO (07:37)
[2017-05-03] MEDS ORDERED: METR500T PO (07:37)
== END 2017-05-03 07:48 | disposition home or self-care (01) ==
LOC: ER 05:30
DX: O86.12 Endometritis following delivery (principal); E03.9 Hypothyroidism, unspecified; J45.909 Unspecified asthma, uncomplicated; Z91.041 Radiographic dye allergy status; Z91.040 Latex allergy status
CPT/HCPCS: 36415; 80053; 81001; 83735; 85007; 85027; 87070; 87086; 87205; 96365; 96375; 99285; J2405; J3010; J3490; J7030; Q0111

== ENCOUNTER 2017-06-19 14:51 | Emergency (ER) | payer OTHER ==
[~2017-06-19] VITALS: Ht 172.7 cm; Wt 81.6 kg
[~2017-06-19 14:51] MED LIST changes: +DOXY100T PO; +METR500T PO
[2017-06-19 15:39] VITALS: BP 121/63
[2017-06-19] MEDS ORDERED: SULF1TAB24 PO (15:49)
--- NOTE | 2017-06-19 15:49 | PHYS DOC ---
Past Medical History Past Medical History: Anxiety, Asthma, Hypothyroid Past Surgical History: , Other Additional Past Surgical Histo: LEFT ANKLE, right hand surgery Alcohol Use: None Drug Use: None Adult General Chief Complaint Chief Complaint: FACE PAIN [facility] HPI Patient is a 32 year old female presents emergency department stating that she had a sore throat spray appears in which she popped it as a pimple. She states she had some yellow drainage and discharge coming from the area. She also has an area on her right side that is red warm swollen and tender. She denies any drainage or discharge coming from the site. Patient states her tetanus immunization was approximately 2 years ago. He states that she has increased pain in her frontal part of her teeth. Patient also states that she has a sore throat with nasal congestion. Denies any fever, chills or any nausea or vomiting. Review of Systems Review of Systems Constitutional: Denies fever or chills [] Eyes: Denies change in visual acuity, redness, or eye pain [] HENT: nasal congestion and sore throat [] Respiratory: Denies cough or shortness of breath [] Cardiovascular: No additional information not addressed in HPI [] GI: Denies abdominal pain, nausea, vomiting, bloody stools or diarrhea [] : Denies dysuria or hematuria [] Musculoskeletal: Denies back pain or joint pain [] Integument: Denies rash or skin lesions patient with a reddened area to the right naris, and right side. Neurologic: Denies headache, focal weakness or sensory changes [] Endocrine: Denies polyuria or polydipsia [] Allergies Allergies Allergies Coded Allergies Type Severity Reaction Last Updated Verified Latex, Natural Rubber Allergy Intermediate Hives 12/20/15 Yes I S O L A T I O N *CONTACT* Allergy Unknown 12/20/15 Yes Physical Exam Physical Exam Constitutional: Well developed, well nourished, no acute distress, non-toxic appearance. [] HENT: Normocephalic, atraumatic, bilateral external ears normal, oropharynx moist, no oral exudates, nose normal. Patient with redness noted no erythematous no exudate noted in the throat with postnasal drip. Patient with frontal and maxillary sinus tenderness. Eyes: PERRLA, EOMI, conjunctiva normal, no discharge. [] Neck: Normal range of motion, no tenderness, supple, no stridor. [] Cardiovascular:Heart rate regular rhythm, no murmur [] Lungs & Thorax: Bilateral breath sounds clear to auscultation [] Skin: Warm, dry, no erythema, no rash. Patient with an area under the right naris that appears to be red swollen tender with a dark spot in the middle no drainage or discharge noted from the site. Patient also has an area on her right side that appears to be a bug bite in which is red swollen tender with no drainage or discharge. She does have a black spot in the middle as well. Back: No tenderness Extremities: No tenderness, no cyanosis, no clubbing, ROM intact, no edema. [] Neurologic: Alert and oriented X 3, normal motor function, normal sensory function, no focal deficits noted. [] Psychologic: Affect normal, judgement normal, mood normal. [] EKG EKG [] Radiology/Procedures Radiology/Procedures [] Course & Med Decision Making Course & Med Decision Making Pertinent Labs and Imaging studies reviewed. (See chart for details) Patient will be placed on Bactrim for a sinus infection as well as a abscess on the right naris, and right side of the abdomen. Patient will be discharged home in stable condition with recommendations for Tylenol or ibuprofen for pain and discomfort. Patient was also encouraged to use warm moist packs over the reddened area under the right naris and right side. Patient agrees with discharge instructions treatment regimens and follow-up recommendations. Signs and symptoms to return back to emergency department has been provided. [] Dragon Disclaimer Dragon Disclaimer This electronic medical record was generated, in whole or in part, using a voice recognition dictation system. Departure Departure Impression: Primary Impression: Acute sinusitis Additional Impression: Abscess Disposition: 01 HOME, SELF-CARE Condition: STABLE Referrals: JONNY LEVI MD (PCP) Patient Instructions: Abscess, Ccri-[id number], Sinusitis, [id number] Additional Instructions: To the wound areas underneath the right naris in the right abdomen you may use warm moist packs to help promote drainage. You also state that the area on the right side is irritated and itching. You may take Benadryl 25 mg every 6 hours as needed for itching and irritation. This medication will cause drowsiness do not take any be alert and oriented. Antibiotics as prescribed. You may also take Sudafed [id number]-hycuhic to help with sinus pressure and. Take this medication as directed by crosscutter. Drink plenty of fluids. Follow-up through primary care physician in the next 5-7 days. Return back to emergency prior for signs and symptoms become worse. Scripts Sulfamethoxazole/Trimethoprim (BACTRIM DS TABLET) 1 Each Tablet 1 TAB PO BID, #20 TAB Prov: ALBERTA PERSAUD APRN 06/19/17 Problem Qualifiers ALBERTA PERSAUD APRN Jun 19, 2017 15:49
== END 2017-06-19 15:54 | disposition home or self-care (01) ==
LOC: ER 14:51
DX: J32.8 Other chronic sinusitis (principal); L02.211 Cutaneous abscess of abdominal wall; E03.9 Hypothyroidism, unspecified; F41.9 Anxiety disorder, unspecified; J45.909 Unspecified asthma, uncomplicated; Z91.041 Radiographic dye allergy status; Z91.040 Latex allergy status
CPT/HCPCS: 99283

== ENCOUNTER → 2017-07-17 | Outpatient (CLI) | payer OTHER ==
[2017-06-19 15:39] VITALS: BP 121/63
[~2017-07-17] MED LIST changes: +SULF1TAB24 PO
== END | disposition home or self-care (01) ==
LOC: PF 08:48
PROVIDERS: ATTEND Neuromusculoskeletal Medicine, Sports Medicine
DX: J45.909 Unspecified asthma, uncomplicated (principal); F17.200 Nicotine dependence, unspecified, uncomplicated
CPT/HCPCS: 94060

== ENCOUNTER 2017-07-30 04:26 | Emergency (ER) | payer OTHER ==
[~2017-07-30] VITALS: Ht 170.2 cm; Wt 89.4 kg
[2017-07-30 04:38] VITALS: BP 129/63
--- NOTE | 2017-07-30 04:48 | PHYS DOC ---
Past Medical History Past Medical History: Asthma, Hypothyroid Past Medical History frequent abscesses Past Surgical History: , Other Additional Past Surgical Histo: left ankle, right hand Alcohol Use: None Drug Use: None Adult General Chief Complaint Chief Complaint: ABSCESS HPI HPI Patient is a 32 year old female who presents with left axilla abscess. She has frequent recurrent abscesses. This one started in her left axilla a few days ago. It is red and swollen and painful. No fever. Review of Systems Review of Systems Constitutional: Denies fever or chills Integument: Denies rash. abscess noted Current Medications Current Medications Current Medications Medications (Trade) Dose Ordered Sig/Michael Start Time Stop Time Status Last Admin Dose Admin Lidocaine/Sodium Bicarbonate (Buffered Lidocaine 1%) 20 ml 1X ONCE 07/30/17 05:15 07/30/17 05:16 Allergies Allergies Allergies Coded Allergies Type Severity Reaction Last Updated Verified Latex, Natural Rubber Allergy Intermediate Hives 12/20/15 Yes I S O L A T I O N *CONTACT* Allergy Unknown 12/20/15 Yes Physical Exam Physical Exam Constitutional: Well developed, well nourished, no acute distress, non-toxic appearance. Skin: Left axilla; superior margin. 3.0 cm abscess noted. Current Patient Data Vital Signs Vital Signs Date Time Temp Pulse Resp B/P (MAP) Pulse Ox O2 Delivery O2 Flow Rate FiO2 07/30/17 04:38 98.7 96 18 99 Room Air 98.7 Course & Med Decision Making Course & Med Decision Making Procedure: consent obtained. Area cleansed with betadine and then NS. Anesthesized with 1% lidocaine. Incised with blade; purulent material removed; culture obtained. Iodoform packing placed. Patient tolerated procedure well Placed on clindamycin Dragon Disclaimer Dragon Disclaimer This electronic medical record was generated, in whole or in part, using a voice recognition dictation system. Departure Departure Impression: Primary Impression: Abscess Disposition: 01 HOME, SELF-CARE Referrals: JONNY LEVI MD (PCP) Patient Instructions: Abscess Additional Instructions: YOU NEED TO TALK WITH YOUR PRIMARY CARE DOCTOR RE: A FOLLOW UP WITH INFECTIOUS DISEASE TO ERADICATE YOUR FREQUENT ABSCESSES. Scripts Hydrocodone/Apap 5-325 (NORCO 5-325 TABLET) 1 Each Tablet 1-2 TAB PO Q4-6HRS, #10 TAB Prov: IRENA GUO MD 07/30/17 Clindamycin Hcl (CLINDAMYCIN HCL) 300 Mg Capsule 1 CAP PO TID, #21 CAP Prov: IRENA GUO MD 07/30/17 IRENA GUO MD Jul 30, 2017 04:48
[2017-07-30] MEDS ORDERED: CLIN300C8 PO (05:08)
[2017-07-30] MEDS ORDERED: HYDR-971 PO (05:08)
[2017-07-30] MEDS ORDERED: LIDOCAINE 1% / SOD BICARB 8.4% 20 ML VIAL. IJ ONE (05:15)
[2017-07-30] MEDS ORDERED: CLINDAMYCIN HCL 150 MG CAPSULE. PO ONE (05:30)
== END 2017-07-30 05:42 | disposition home or self-care (01) ==
LOC: ER 04:26
DX: L02.412 Cutaneous abscess of left axilla (principal); J45.909 Unspecified asthma, uncomplicated; E03.9 Hypothyroidism, unspecified; Z91.041 Radiographic dye allergy status; Z91.040 Latex allergy status
CPT/HCPCS: 10060; 87071; 87075; 87205; 99284-25

== ENCOUNTER 2017-09-01 10:20 | Emergency (ER) | payer SELFPAY ==
[~2017-09-01] VITALS: Ht 172.7 cm; Wt 89.4 kg
[~2017-09-01 10:20] MED LIST changes: +CLIN300C8 PO
[2017-09-01 10:22] VITALS: BP 113/65
[2017-09-01] MEDS ORDERED: HYDROcodone/APAP 5/325MG 1 TAB TABLET PO ONE (11:00)
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
[2017-09-01] MEDS ORDERED: CYCL10TA2 PO (11:30)
== END 2017-09-01 11:39 | disposition home or self-care (01) ==
LOC: ER 10:20
DX: R68.84 Jaw pain (principal); J45.909 Unspecified asthma, uncomplicated; E03.9 Hypothyroidism, unspecified; Z91.041 Radiographic dye allergy status; Z91.040 Latex allergy status; Y04.0XXA Assault by unarmed brawl or fight, initial encounter; Y93.89 Activity, other specified; Y92.89 Other specified places as the place of occurrence of the external cause; Y99.8 Other external cause status
CPT/HCPCS: 70110; 99284

== ENCOUNTER 2017-11-18 01:52 | Emergency (ER) | payer SELFPAY ==
[~2017-11-18] VITALS: Ht 172.7 cm; Wt 93.9 kg
[~2017-11-18 01:52] MED LIST changes: +CYCL10TA2 PO
[2017-11-18 02:01] VITALS: BP 149/67
[2017-11-18] MEDS ORDERED: IBUPROFEN 600 MG TABLET. PO ONE (03:00)
[2017-11-18] MEDS ORDERED: HYDROcodone/APAP 5/325MG 1 TAB TABLET PO ONE (03:00)
[2017-11-18] MEDS ORDERED: IBUP-1007 PO (03:34)
[2017-11-18] MEDS ORDERED: HYDR-971 PO (03:34)
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
[2017-11-21] MEDS ORDERED: HYDR-971 PO (22:52)
== END 2017-11-18 04:05 | disposition home or self-care (01) ==
LOC: EEVIPCON 01:52 → ER 01:52
DX: S52.692A Other fracture of lower end of left ulna, initial encounter for closed fracture (principal); S00.31XA Abrasion of nose, initial encounter; F17.210 Nicotine dependence, cigarettes, uncomplicated; J45.909 Unspecified asthma, uncomplicated; E03.9 Hypothyroidism, unspecified; Z91.040 Latex allergy status; Z91.041 Radiographic dye allergy status; Y04.0XXA Assault by unarmed brawl or fight, initial encounter; Y93.89 Activity, other specified; Y92.89 Other specified places as the place of occurrence of the external cause; Y99.8 Other external cause status
CPT/HCPCS: 29105; 73090; 99284

== ENCOUNTER 2017-11-21 21:27 | Emergency (ER) | payer SELFPAY | END 2017-11-21 23:04 | disposition home or self-care (01) | LOC: ER 21:27 | DX: S52.202A Unspecified fracture of shaft of left ulna, initial encounter for closed fracture (principal); E03.9 Hypothyroidism, unspecified; J45.909 Unspecified asthma, uncomplicated; Z91.041 Radiographic dye allergy status; Z91.040 Latex allergy status; W45.8XXA Other foreign body or object entering through skin, initial encounter; Y93.89 Activity, other specified; Y99.8 Other external cause status; Y92.89 Other specified places as the place of occurrence of the external cause | CPT/HCPCS: 29125; 99283 ==

== ENCOUNTER 2017-11-29 18:54 | Emergency (ER) | payer SELFPAY ==
[2017-11-30 05:48] LABS: NEGATIVE OBC STREP NEG; POSITIVE OBC STREP POS
== END 2017-11-29 20:11 | disposition home or self-care (01) ==
LOC: ER 18:54
DX: J02.0 Streptococcal pharyngitis (principal); J45.909 Unspecified asthma, uncomplicated; E03.9 Hypothyroidism, unspecified; Z46.89 Encounter for fitting and adjustment of other specified devices; Z91.041 Radiographic dye allergy status; Z91.040 Latex allergy status
CPT/HCPCS: 29125; 87880; 99283-25

== ENCOUNTER 2018-01-07 14:59 | Emergency (ER) | payer SELFPAY | END 2018-01-07 15:43 | disposition home or self-care (01) | LOC: ER 14:59 | DX: L08.9 Local infection of the skin and subcutaneous tissue, unspecified (principal); F42.4 Excoriation (skin-picking) disorder; J45.909 Unspecified asthma, uncomplicated; E03.9 Hypothyroidism, unspecified; Z91.041 Radiographic dye allergy status; Z91.040 Latex allergy status | CPT/HCPCS: 99283 ==

== ENCOUNTER 2018-02-03 19:23 | Emergency (ER) | payer SELFPAY ==
[2018-02-03] MEDS: HYDROcodone/APAP 7.5/325MG 1 TAB TABLET PO (21:28)
== END 2018-02-03 21:31 | disposition home or self-care (01) ==
LOC: ER 21:31
DX: T23.021A Burn of unspecified degree of single right finger (nail) except thumb, initial encounter (principal); J45.909 Unspecified asthma, uncomplicated; E03.9 Hypothyroidism, unspecified; Z91.040 Latex allergy status; Z91.041 Radiographic dye allergy status; W86.1XXA Exposure to industrial wiring, appliances and electrical machinery, initial encounter; Y93.89 Activity, other specified; Y92.89 Other specified places as the place of occurrence of the external cause; Y99.8 Other external cause status
CPT/HCPCS: 73130; 99284

== ENCOUNTER 2018-03-21 15:20 | Emergency (ER) | payer SELFPAY ==
[2018-03-21] MEDS: IBUPROFEN 800 MG TABLET. PO (15:50)
[2018-03-21] MEDS: HYDROcodone/APAP 5/325MG 1 TAB TABLET PO (15:50)
== END 2018-03-21 15:54 | disposition home or self-care (01) ==
LOC: ER 15:20
DX: H60.92 Unspecified otitis externa, left ear (principal); E03.9 Hypothyroidism, unspecified; J45.909 Unspecified asthma, uncomplicated; Z91.041 Radiographic dye allergy status; Z91.040 Latex allergy status
CPT/HCPCS: 99283

== ENCOUNTER 2018-11-14 14:18 | Emergency (ER) | payer BC ==
[~2018-11-14] VITALS: Ht 172.7 cm; Wt 87.5 kg
[~2018-11-14 14:18] MED LIST changes: +CIPR7.5D EACH EAR; +HYDR-3164 PO; -HYDR-971 PO; +IBUP-1007 PO
[2018-11-14 14:58] VITALS: BP 126/57
[2018-11-14] MEDS ORDERED: ALBUTEROL SULFATE 2.5 MG/3 ML NEBU. NEB ONE (15:30)
--- NOTE | 2018-11-14 16:08 | PHYS DOC ---
Past Medical History Past Medical History: Anxiety, Asthma, Hypothyroid Past Surgical History: , Other Additional Past Surgical Histo: left ankle, right hand Alcohol Use: None Drug Use: None Adult General Chief Complaint Chief Complaint: SHORTNESS OF BREATH [facility] HPI Patient is a 33 year old female with history of asthma who reports a nonproductive cough, and painful inspiration that started today. Patient states she has also felt hot but has not measured a fever. She denies any sore throat, ear pain, headache, nausea, vomiting, diarrhea, or abdominal pain. Prior to today she felt fine and denies any complaints. She states she is currently staying at [facility] where another resident recently tested positive for influenza. Patient did not have the influenza vaccination yet this year. She states that she usually smokes less than a pack of cigarettes a day but hasn't even been able to smoke cigarettes today because it hurts too bad to breathe or cough. Review of Systems Review of Systems Constitutional: See history of present illness Eyes: Denies change in visual acuity, redness, or eye pain [] HENT: Denies nasal congestion, ear pain, or sore throat [] Respiratory: See history of present illness Cardiovascular: No additional information not addressed in HPI [] GI: Denies abdominal pain, nausea, vomiting, or diarrhea [] Musculoskeletal: Denies back pain or joint pain [] Integument: Denies rash or skin lesions [] Neurologic: Denies headache, focal weakness or sensory changes [] Complete systems were reviewed and found to be within normal limits, except as documented in this note. Current Medications Current Medications Current Medications Medications (Trade) Dose Ordered Sig/[facility] Start Time Stop Time Status Last Admin Dose Admin Albuterol Sulfate (Ventolin Neb Soln) 2.5 mg 1X ONCE 11/14/18 15:30 11/14/18 15:31 DC 11/14/18 15:50 2.5 MG Allergies Allergies Allergies Coded Allergies Type Severity Reaction Last Updated Verified Latex, Natural Rubber Allergy Intermediate Hives 12/20/15 Yes I S O L A T I O N *CONTACT* Allergy Unknown 12/20/15 Yes Physical Exam Physical Exam Constitutional: Well developed, well nourished, no acute distress, non-toxic appearance. [] HENT: Normocephalic, atraumatic, bilateral external ears normal, bilateral TMs normal, oropharynx moist, no oral exudates, nose normal. [] Eyes: conjunctiva normal, no discharge. [] Neck: Normal range of motion, no tenderness, supple, no stridor. [] Cardiovascular:Heart rate regular rhythm, no murmur [] Lungs & Thorax: Bilateral breath sounds clear to auscultation; anterior chest wall mild tenderness to palpation[] Abdomen: Bowel sounds normal, soft, no tenderness, no masses, no pulsatile masses. [] Skin: Warm, dry, no erythema, no rash. [] Extremities: No cyanosis, no clubbing, ROM intact, no edema. [] Neurologic: Alert and oriented X 3, normal motor function, normal sensory function, no focal deficits noted. [] Psychologic: Affect normal, judgement normal, mood normal. [] Current Patient Data Vital Signs Vital Signs Date Time Temp Pulse Resp B/P (MAP) Pulse Ox O2 Delivery O2 Flow Rate FiO2 11/14/18 15:54 100 Room Air 11/14/18 14:58 99.5 104 16 126/57 (80) 99.5 Lab Values Laboratory Tests Test 11/14/18 15:31 Influenza Type A Antigen Negative (NEGATIVE) Influenza Type B Antigen Negative (NEGATIVE) EKG EKG [] Radiology/Procedures Radiology/Procedures Influenza testing negative, patient reported feeling better after the breathing treatment. Lungs remain clear throughout all taylor.[] Course & Med Decision Making Course & Med Decision Making Pertinent Labs and Imaging studies reviewed. (See chart for details) dx: Costochondral chest pain, costochondritis Prescriptions written for naproxen and a Pro Air inhaler. Avoid exposure to airway irritants use a cool mist humidifier. Fill prescriptions ,take as directed follow-up with her primary care doctor in 2-3 days if no better return to the ER symptoms worsen. Patient verbalized an understanding of home care, medications, follow-up, and return to ED instructions and was in agreement with the plan of care. [] Dragon Disclaimer Dragon Disclaimer This electronic medical record was generated, in whole or in part, using a voice recognition dictation system. Departure Departure Impression: Primary Impression: Costochondral chest pain Additional Impression: Costochondritis, acute Disposition: 01 HOME, SELF-CARE Condition: STABLE Referrals: JONYN LEVI MD (PCP) Patient Instructions: Costochondritis, [id number] Additional Instructions: Fill prescription(s) and use as directed. Recommend a Cool mist humidifier in room at bedtime. Increase clear fluids. Avoid triggers such as smoke, fragrance , dust, and pollen. May take OTC cough suppressants as needed. Follow-up with your primary care doctor in 2-3 days if symptoms persist, return to the ER if they worsen. Scripts Naproxen (NAPROXEN) 500 Mg Tablet 1 TAB PO BID for 10 Days, #20 TAB 0 Refills Prov: TORY DONATO APRN 11/14/18 Albuterol Sulfate (PROAIR HFA INHALER) 8.5 Gm Hfa.aer.ad 1-2 PUFF INH PRN Q6HRS PRN for SHORTNESS OF BREATH for 10 Days, #1 INHALER 0 Refills Prov: TORY DONATO APRN 11/14/18 Problem Qualifiers TORY DONATO APRN Nov 14, 2018 16:08
[2018-11-14 16:19] LABS: INFLUENZA A PATIENT NEGATIVE (NEGATIVE); INFLUENZA B PATIENT NEGATIVE (NEGATIVE)
[2018-11-14] MEDS ORDERED: ALBU2.5V8 INH (16:29)
[2018-11-14] MEDS ORDERED: NAPR-514 PO (16:29)
[2018-11-15] MEDS ORDERED: AZIT250T6 PO (18:46)
== END 2018-11-14 16:36 | disposition home or self-care (01) ==
LOC: ER 14:18
DX: M94.0 Chondrocostal junction syndrome [Tietze] (principal); F17.210 Nicotine dependence, cigarettes, uncomplicated; E03.9 Hypothyroidism, unspecified; J45.909 Unspecified asthma, uncomplicated; F41.9 Anxiety disorder, unspecified; Z91.041 Radiographic dye allergy status; Z91.040 Latex allergy status
CPT/HCPCS: 87804; 94640; 99283; J7613

== ENCOUNTER 2018-11-15 18:33 | Emergency (ER) | payer BC ==
[~2018-11-15] VITALS: Ht 172.7 cm; Wt 87.5 kg
[~2018-11-15 18:33] MED LIST changes: +ALBU2.5V8 INH; +NAPR-514 PO
[2018-11-15] MEDS ORDERED: AZIT250T6 PO (18:46)
[2018-11-15 18:47] VITALS: BP 129/66
--- NOTE | 2018-11-15 18:47 | PHYS DOC ---
Past Medical History Past Medical History: Anxiety, Asthma, Hypothyroid Past Surgical History: , Other Additional Past Surgical Histo: left ankle, right hand Alcohol Use: None Drug Use: None Adult General Chief Complaint Chief Complaint: COUGH HPI HPI Patient is a 33 year old female who presents with was here yesterday with the same symptoms of cough, chills, fever, headache states is all been going on for last 2 days. She states she is coughing up green and yellow mucus and has sinus pain and pressure along with ear pain. Patient states yesterday they tested her for the flu negative gave her an inhaler naproxen. She states that she's been taking ibuprofen and Tylenol to help with fever. She took ibuprofen last at 1100 and Tylenol last at 5 PM tonight. Her current temples 101 in the ED. Review of Systems Review of Systems Constitutional: fever or chills [] Eyes: Denies change in visual acuity, redness, or eye pain [] HENT: nasal congestion. Denies sore throat [] Respiratory: cough or denies shortness of breath [] Cardiovascular: No additional information not addressed in HPI [] GI: Denies abdominal pain, nausea, vomiting, bloody stools or diarrhea [] : Denies dysuria or hematuria [] Musculoskeletal: Denies back pain or joint pain [] Integument: Denies rash or skin lesions [] Neurologic: Denies headache, focal weakness or sensory changes [] All other systems were reviewed and found to be within normal limits, except as documented in this note. Current Medications Current Medications Current Medications Medications (Trade) Dose Ordered Sig/Michael Start Time Stop Time Status Last Admin Dose Admin Ibuprofen (Motrin) 600 mg 1X ONCE 11/15/18 19:00 11/15/18 19:01 DC 11/15/18 18:54 600 MG Allergies Allergies Allergies Coded Allergies Type Severity Reaction Last Updated Verified Latex, Natural Rubber Allergy Intermediate Hives 12/20/15 Yes I S O L A T I O N *CONTACT* Allergy Unknown 12/20/15 Yes Physical Exam Physical Exam Constitutional: Well developed, well nourished, no acute distress, febrile but non-toxic appearance. [] HENT: Normocephalic, atraumatic, bilateral external ears normal, oropharynx moist, no oral exudates, nose normal. Bilateral ear tubes appendix are reddened. [] Eyes: PERRLA, EOMI, conjunctiva normal, no discharge. [] Neck: Normal range of motion, no tenderness, supple, no stridor. [] Cardiovascular:Heart rate regular rhythm, no murmur [] Lungs & Thorax: Bilateral breath sounds clear to auscultation [] Abdomen: Bowel sounds normal, soft, no tenderness, no masses, no pulsatile masses. [] Skin: Warm, dry, no erythema, no rash. [] Back: No tenderness, no CVA tenderness. [] Extremities: No tenderness, no cyanosis, no clubbing, ROM intact, no edema. [] Neurologic: Alert and oriented X 3, normal motor function, normal sensory function, no focal deficits noted. [] Psychologic: Affect normal, judgement normal, mood normal. [] Current Patient Data Vital Signs Vital Signs Date Time Temp Pulse Resp B/P (MAP) Pulse Ox O2 Delivery O2 Flow Rate FiO2 11/15/18 18:47 101.6 108 24 129/66 (87) 100 Room Air 101.6 EKG EKG [] Radiology/Procedures Radiology/Procedures [] Course & Med Decision Making Course & Med Decision Making Patient is a 33 year old female who presents with was here yesterday with the same symptoms of cough, chills, fever, headache states is all been going on for last 2 days. She states she is coughing up green and yellow mucus and has sinus pain and pressure along with ear pain. Patient states yesterday they tested her for the flu negative gave her an inhaler naproxen. She states that she's been taking ibuprofen and Tylenol to help with fever. She took ibuprofen last at 1100 and Tylenol last at 5 PM tonight. Her current temples 101 in the ED. lungs are clear to auscultation all lobes. Throat is reddened but no exudates. Bilateral tympanic membranes are reddened. Patient does have sinus tenderness. States she is allergic to latex. She states she has a history of asthma, anxiety , hypothyroidism. She is alert and oriented. Mucous membranes are moist. She denies abdominal pain, vomiting, nausea, diarrhea, chest pain. She states she is having some back pain in the back of her neck is hurting due to all the coughing. Patient is ambulatory and speaks in clear full sentences. She is in no respiratory distress. She states she is currently in the [facility]. Patient will be treated for otitis media and a probable sinus infection. Staff Physician Addendum: I was working in the ER during the course of this patient's visit. I was available for consultation as needed, but I was not directly involved in the care of this patient. Dragon Disclaimer Dragon Disclaimer This electronic medical record was generated, in whole or in part, using a voice recognition dictation system. Departure Departure Impression: Primary Impression: Upper respiratory infection Additional Impression: Otitis media Disposition: HOME, SELF-CARE Condition: STABLE Referrals: JONNY LEVI MD (PCP) Patient Instructions: Otitis Media, Adult Additional Instructions: Take medications as prescribed. Drink plenty of fluids. Scripts Azithromycin (AZITHROMYCIN TABLET) 250 Mg Tablet 1 PKG PO UD, #6 TAB Prov: ALBERTA LOPEZ APRN 11/15/18 Problem Qualifiers Primary Impression: Upper respiratory infection URI type: unspecified URI Qualified Codes: J06.9 - Acute upper respiratory infection, unspecified Additional Impression: Otitis media Otitis media type: unspecified Laterality: left Qualified Codes: H66.92 - Otitis media, unspecified, left ear ALBERTA LOPEZ APRN Nov 15, 2018 18:47 ANA MCNALLY MD Nov 16, 2018 05:06
[2018-11-15] MEDS ORDERED: IBUPROFEN 600 MG TABLET. PO ONE (19:00)
== END 2018-11-15 18:53 | disposition home or self-care (01) ==
LOC: ER 18:33
DX: J06.9 Acute upper respiratory infection, unspecified (principal); H66.92 Otitis media, unspecified, left ear; J45.909 Unspecified asthma, uncomplicated; E03.9 Hypothyroidism, unspecified; Z91.040 Latex allergy status; Z91.041 Radiographic dye allergy status
CPT/HCPCS: 99283

== ENCOUNTER → 2019-10-21 | Outpatient (CLI) | payer BC, OTHER ==
[~2019-10-21] MED LIST changes: +AZIT250T6 PO
--- NOTE | 2019-10-21 18:01 | KCIC ---
Study: FOOT BILAT 3V Indication: Bilateral foot pain. Provided history of left ankle reconstruction. Comparison: Right foot 01/28/2017 Findings: Left foot: Bipartite medial hallux sesamoid. No acute fracture. Os trigonum. No significant degenerative changes. Normal osseous mineralization. Right foot: Tiny plantar calcaneal spur. Tiny os tibiale externum. No acute fracture. No significant degenerative changes. Normal osseous mineralization. Impression: 1. No acute fracture on either the right or left. 2. 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 3. Os trigonum on the left. 4. Tiny plantar calcaneal spur on the right. Electronically signed by: ESTELLE MCCLAIN MD (10/21/2019 5:57 PM) [facility]
== END | disposition home or self-care (01) ==
LOC: KCIC 13:50
PROVIDERS: ATTEND Physician Assistant Medical
DX: M77.31 Calcaneal spur, right foot (principal); M20.12 Hallux valgus (acquired), left foot
CPT/HCPCS: 73630